=== PATIENT | female | born 1970 | race Caucasian/White ===

== ENCOUNTER → 2023-06-02 | Outpatient (CLI) | payer OTHER ==
--- NOTE | 2023-06-02 17:48 | CT ---
EXAMINATION TYPE: CT soft tissue neck w con CT DLP: 319.6 mGycm, Automated exposure control for dose reduction was used. DATE OF EXAM: 06/02/2023 5:16 PM COMPARISON: None. CLINICAL INDICATION:Female, 52 years old with history of R22.1 LOCALIZED SWELLING, MASS AND LUMP, NEC K; PHH, LOCALIZED SWELLING, MASS AND LUMP, NECK under left ear for about 30 days. lump marked with BB . TECHNIQUE: Standard enhanced CT of the neck. Axial sections with coronal and sagittal reformats were obtained. Contrast used:100ml mL of Isovue 300 with IV Contrast, Oral contrast used: none. FINDINGS: Brain: Visualized portions are grossly unremarkable. Orbits: Unremarkable Sinuses: Grossly unremarkable. Spaces of the neck: Palpable marker correlates with the parotid gland. No definitive parotid gland ma ss or lymph node visualized. Musculoskeletal: No acute osseous pathology. Degenerative disc disease changes of the visualized spin e are present. Lymph nodes: Multiple nonenlarged lymph nodes are seen along both anterior chains of the neck. Vascular structures: Visualized major arteries are patent without evidence of aneurysm. Thoracic Inlet/airway: Airway is patent. The lung apices are clear. Soft tissues/Thyroid: Subcentimeter right thyroid nodule which is low attenuation measuring 5 mm. Other: none. IMPRESSION Palpable marker correlates with the left parotid gland. The parotid gland is relatively symmetric whe n comparing to the contralateral side. No suspicious mass or lymph node identified.
== END | disposition home or self-care (01) ==
LOC: RADCTMAIN 16:39
PROVIDERS: ATTEND Family Medicine
DX: R22.1 Localized swelling, mass and lump, neck (principal)
CPT/HCPCS: 70491; Q9967

== ENCOUNTER → 2023-12-18 | Outpatient (CLI) | payer OTHER ==
--- NOTE | 2023-12-18 11:17 | CTL ---
EXAMINATION TYPE: CT Low Dose Lung DATE OF EXAM ORDERED: 12/18/2023 HISTORY: . Lung cancer screening CT DLP: 112.[address] CTDI: 3 mGy Automated exposure control for dose reduction was used. COMPARISON: None available. TECHNIQUE: Low dose computed tomography scan was performed through the chest at 1 mm thick sections a nd reconstructed images in multiple planes at 1 mm and [address] DIAGNOSTIC QUALITY: Satisfactory FINDINGS: LUNG NODULES: None. LUNGS: COPD: Severity: None Fibrosis: Severity: None Lymph nodes: No adenopathy. Other findings: RIGHT PLEURAL SPACE: Effusion: None Calcification: None Thickening: None Pneumothorax: None LEFT PLEURAL SPACE: Effusion: None Calcification: None Thickening: None Pneumothorax: None HEART: Heart Size: Normal Coronary Calcification: None Pericardial Effusion: None OTHER FINDINGS: Upper abdomen: None Bony thorax: None Supraclavicular region: None Other: None IMPRESSION: 1. Negative lung cancer screening examination for significant pulmonary nodules. 2. No acute findings. CT LUNG RAD AND CT CHEST RECOMMENDATION: Lung-Rad 1 Negative: Continue annual screening with LDCT in 12 months. S Modifier (other clinically significant findings): None.
--- NOTE | 2023-12-21 19:35 | MM ---
Reason for Exam: Screening (asymptomatic). Last mammogram was performed 9 year(s) and 9 month(s) ago. Patient History: Menarche at age 10. First Full-Term at age 19. Hysterectomy at age 40. 10/30/2011, Benign Core Biopsy on the left side. Risk Values: Rocio 5 year model risk: 1.3%. NCI Lifetime model risk: 9.6%. Prior Study Comparison: 04/30/2012 Left Diagnostic Mammogram, [facility]. 11/30/2012 Bilateral Diagnostic Mammogram, [facility]. 03/06/2014 Bilateral Diagnostic Mammogram, [facility]. Tissue Density: There are scattered fibroglandular densities. Findings: Analyzed By CAD. Subareolar focal asymmetry right breast has become more defined and further evaluation is recommended. Otherwise, no significant change. Microclip left breast from prior biopsy. Overall Assessment: Incomplete: need additional imaging evaluation, BI-RAD 0 Management: Special View Mammogram of the right breast. Diagnostic Breast Ultrasound of the right breast. . [facility] will attempt to contact patient to return for supplemental views and ultrasound if indicated. Electronically signed and approved by: Tarik Garcia M.D. Radiologist
== END | disposition home or self-care (01) ==
LOC: RADMAMWWP 10:00
PROVIDERS: ATTEND Family Medicine
DX: Z12.31 Encounter for screening mammogram for malignant neoplasm of breast (principal); Z12.2 Encounter for screening for malignant neoplasm of respiratory organs; F17.210 Nicotine dependence, cigarettes, uncomplicated
CPT/HCPCS: 71271; 77063; 77067

== ENCOUNTER → 2024-01-01 | Outpatient (CLI) | payer OTHER ==
--- NOTE | 2024-01-01 13:27 | MM ---
Reason for Exam: Additional evaluation requested from abnormal screening. Last screening mammogram was performed less than 1 month ago. Patient History: Menarche at age 10. First Full-Term at age 19. Hysterectomy at age 40. 10/30/2011, Benign Core Biopsy on the left side. Risk Values: Rocio 5 year model risk: 1.3%. NCI Lifetime model risk: 9.6%. Tissue Density: Right: There are scattered fibroglandular densities. Findings: Analyzed By CAD. Under compression area subareolar right breast appears to disperse normally. Suspicious abnormality in the mediolateral identified. Follow-up with ultrasound is recommended. Overall Assessment: Incomplete: need additional imaging evaluation, BI-RAD 0 Management: Diagnostic Breast Ultrasound of the right breast. A negative mammogram report should not preclude additional follow up of suspicious palpable abnormalities. Patient should continue monthly self breast exam. A clinical breast exam by your physician is recommended on an annual basis and results should be correlated with mammographic findings. Electronically signed and approved by: Ld Oro D.O. Radiologis
--- NOTE | 2024-01-01 14:37 | USB ---
Reason for Exam: Additional evaluation requested from abnormal screening. Patient History: Menarche at age 10. First Full-Term at age 19. Hysterectomy at age 40. 10/30/2011, Benign Core Biopsy on the left side. Risk Values: Rocio 5 year model risk: 1.3%. NCI Lifetime model risk: 9.6%. Technique: Method: Targeted. Prior Study Comparison: 11/30/2012 Bilateral Diagnostic Mammogram, [facility]. 03/06/2014 Bilateral Diagnostic Mammogram, [facility]. 12/18/2023 Bilateral MG 3D screening mammo w/cad, [facility]. Findings: The axilla of the right breast and the retroareolar of the right breast were scanned. There is a 0.7 x 0.3 0.6 cm hypoechoic area anterior subareolar breast clock position nipple.. This contains vascularity. Findings compatible solid lesion. Consider biopsy. Overall Assessment: Suspicious, BI-RAD 4 Management: Ultrasound Core Biopsy of the right breast. A clinical breast exam by your physician is recommended on an annual basis and results should be correlated with mammographic findings. This exam should not preclude additional follow-up of suspicious palpable abnormalities. Results were given to the patient verbally at the time of exam. Electronically signed and approved by: Ld Oro D.O. Radiologis
== END | disposition home or self-care (01) ==
LOC: RADMAMWWP 12:55
PROVIDERS: ATTEND Family Medicine
DX: R92.8 Other abnormal and inconclusive findings on diagnostic imaging of breast (principal)
CPT/HCPCS: 77061; 77065

== ENCOUNTER → 2024-01-13 | Day surgery (SDC) | payer OTHER ==
--- NOTE | 2024-01-18 13:40 | MM ---
Reason for Exam: Post Procedure Mammogram. Last screening mammogram was performed less than 1 month ago. Patient History: Menarche at age 10. First Full-Term at age 19. Hysterectomy at age 40. Postmenopausal. 10/30/2011, Benign Core Biopsy on the left side. Risk Values: Rocio 5 year model risk: 1.3%. NCI Lifetime model risk: 9.6%. Prior Study Comparison: 11/30/2012 Bilateral Diagnostic Mammogram, [facility]. 03/06/2014 Bilateral Diagnostic Mammogram, [facility]. 12/18/2023 Bilateral MG 3D screening mammo w/cad, [facility]. 01/01/2024 Right MG 3D work up w/cad RT, [facility]. Tissue Density: Right: There are scattered areas of fibroglandular density. Pathology Description: Cores: 3 The procedure of ultrasound guided core biopsy was explained to the patient. Benefits, alternatives, and risks were discussed. An informed consent was then obtained. The small 7 mm, 7:00 subareolar nodule is identified and targeted for biopsy. The patient was placed in supine positioning for imaging and for the procedure. The overlying skin was prepped and draped in usual sterile fashion. Lidocaine was used as anesthetic into the skin and subcutaneous tissue up to area of concern in the right breast. Under ultrasound guidance, a 12-gauge 13-gauge vacuum-assisted Mammotome Elite biopsy gun was used to obtain 3 core samples. Following this, a coil clip was left in lesion. The patient tolerated the procedure well without any immediate complication. The patient was kept in the radiology department for short stay after the procedure and then discharged home in stable condition. Postprocedure mammogram: The patient was transferred to mammography for physician ordered post procedure mammogram for clip placement verification. Postprocedure mammogram shows clip at the site of mammographic nodularity. IMPRESSION: Successful, uncomplicated ultrasound guided core biopsy of the subareolar nodule right breast; full pathology results to follow. Pathology Results: Result: Benign, Fibrocystic change. RIGHT BREAST, SIX O'CLOCK, CORE BIOPSY: Nodular proliferative fibrocystic change with extensive apocrine metaplasia and periductal chronic inflammation (see note). Negative for malignancy. Notes It is noted there is imaging evidence of a 0.7 cm hypoechoic area within the anterior subareolar right breast. Intradepartmental consultation with Dr. Vitor Crespo is in agreement with the assessment. Overall Assessment: Benign Assessment: MG diagnostic mammo RT wo CAD - Right: Benign, BI-RAD 2. Management: Diagnostic Mammogram of the right breast in 6 months. Electronically signed and approved by: Tarik Garcia M.D. Radiologist
== END ==
LOC: RADUSWWP 07:31
PROVIDERS: ATTEND Family Medicine
DX: N60.81 Other benign mammary dysplasias of right breast (principal)
CPT/HCPCS: 88305; 77065; 19083; A4648